=== PATIENT | female | born 1960 | race Caucasian/White ===

== ENCOUNTER → 2019-05-16 | Outpatient (CLI) | payer MEDICARE ==
[~2019-05-16] MED LIST: ALORA1 EAC1 TD; CARAFATE1 GM PO; CELECOXIB200 M1 PO; DHEA25 M3 PO; GOOD SENSE ALLE10 M2 PO; HUMIRA PEN40 MG/0.4 SQ; HYDROCHLOROTH12.5 M2 PO; HYDROCORTISONE10 MG PO; LASIX20 MG PO; LEVAQUIN500 M2 PO; MONTELUKAST SOD10 MG PO; MS CONTIN15 MG PO; NATURE'S BLEND F1 MG PO; OXYBUTYNIN5 MG PO; Ondansetron4 MG PO; PANTOPRAZOLE SO40 MG PO; PERCOCET 10-321 EACH PO; PREDNISONE10 MG PO; VITAMIN D32000 UNI1 PO; Ventolin 02.5 MG/3 M INH; WIXELA 250-501 EACH INH
== END | disposition home or self-care (01) ==
LOC: LAB 08:44
DX: M06.9 Rheumatoid arthritis, unspecified (principal)

== ENCOUNTER → 2019-08-04 | Outpatient (CLI) | payer MEDICARE ==
[2019-08-04 09:15] LABS: ALBUMIN 3.2 gm/dl (3.1-4.5); ALKALINE PHOSPHATASE 58 U/L (45-117); BUN 13 mg/dl (7-24); CHLORIDE 104 mmol/L (98-107); CREATININE 0.87 mg/dL (0.55-1.02); SGOT/AST 25 IU/L (3-35); SGPT/ALT 26 U/L (12-78); SODIUM 139 mmol/L (136-145); TOTAL PROTEIN 6.9 gm/dL (6.4-8.2)
[2019-08-04 09:17] LABS: FREE T4 0.94 ng/dl (0.76-1.46)
[2019-08-05 07:06] LABS: DHEA SULFATE 92.8 ug/dL (29.4-220.5); RHEUMATOID ARTHRITIS FACTOR >650.0 IU/mL (0.0-13.9)
== END | disposition home or self-care (01) ==
LOC: LAB 08:13
PROVIDERS: Nurse Practitioner
DX: E03.9 Hypothyroidism, unspecified (principal); M06.9 Rheumatoid arthritis, unspecified; E27.9 Disorder of adrenal gland, unspecified

== ENCOUNTER 2019-08-14 09:59 | Inpatient (IN) | payer MEDICARE ==
[~2019-08-14] VITALS: Ht 165.1 cm; Wt 126.8 kg
[2019-08-14 10:10] VITALS: BP 130/71
[2019-08-14 10:41] LABS: HEMOGLOBIN 10.8 g/dl (12.0-16.0); MEAN CELL VOLUME 92.5 fl (81.0-99.0); MEAN CORPUSCULAR HGB 27.8 pg (27.0-31.0); MEAN PLATELET VOLUME 11.7 fl (9.6-12.3); PLATELET COUNT AUTOMATED 219 10*3/uL (130-400); RED BLOOD COUNT 3.89 10*6/uL (4.10-5.10); RED CELL DISTRI WIDTH 15.9 % (0-14.5); WHITE BLOOD COUNT 11.3 10*3/uL (4.8-10.8)
[2019-08-14 10:50] LABS: ACT PARTIAL THROMBO TIME 22.3 SECONDS (20.0-32.1); INTERNATIONAL NORM RATIO 0.9 (2.0-3.5)
[2019-08-14 10:58] LABS: ALBUMIN 3.1 gm/dl (3.1-4.5); ALKALINE PHOSPHATASE 53 U/L (45-117); BUN 15 mg/dl (7-24); CHLORIDE 104 mmol/L (98-107); CREATININE 0.95 mg/dL (0.55-1.02); POTASSIUM 3.8 mmol/L (3.5-5.1); SGOT/AST 24 IU/L (3-35); SGPT/ALT 24 U/L (12-78); SODIUM 140 mmol/L (136-145); TOTAL PROTEIN 6.5 gm/dL (6.4-8.2)
[2019-08-14 11:01] LABS: TROPONIN I < 0.015 ng/ml (<0.045)
[2019-08-14 11:02] LABS: TOTAL CELLS COUNTED 100 #CELLS
[2019-08-14 11:04] LABS: PLATELET SUFFICIENCY NORMAL (NORMAL)
--- NOTE | 2019-08-14 11:29 | NUR ---
PT POSITIONED FOR COMFORT WITH FAMILY @ BEDSIDE,CALL LIGHT WITHIN REACH AND SAFETY PRECAUTIONS INTACT.
[2019-08-14 11:30] VITALS: BP 130/76
[2019-08-14 12:13] LABS: BILIRUBIN NEGATIVE (NEGATIVE); BLOOD NEGATIVE (NEGATIVE); CLARITY CLEAR (CLEAR); COLOR YELLOW (YELLOW); GLUCOSE NEGATIVE (NEGATIVE); KETONE NEGATIVE (NEGATIVE); LEUKO ESTERASE NEGATIVE (NEGATIVE); NITRITE NEGATIVE (NEGATIVE); UROBILINOGEN 0.2 E.U./dl (0.2-1.0)
[2019-08-14 12:45] LABS: BACTERIA 1+
[2019-08-14 12:47] VITALS: BP 132/59
--- NOTE | 2019-08-14 13:39 | NUR ---
PT UNABLE TO HAVE CT SCAN D/T NEUROSTIMULATOR AND PT'S DAUGHTER TO BE IN LATER TO "SHUT IT OFF BEFORE I CAN GO TO CT SCAN", PHYSICIANS AWRE.
[2019-08-14 14:27] VITALS: BP 146/81
--- NOTE | 2019-08-14 14:27 | NUR ---
A 59, admitted to , under the services of RONNY Celestin DO with a diagnosis of CHF. Chief complaint is SHORTNESS OF BREATH. Patient arrived via bed from ER. Monitor applied. Initial assessment completed. Vital signs taken and recorded. RONNY CELESTIN DO notified of admission to the unit. Orders received. See assessment for past medical history, medications and allergies. Patient and/or family oriented to unit. [facility] visitation policy reviewed. Clothing/patient valuable form completed. SONIDO TORRES
[2019-08-14] MEDS ORDERED: CELECOXIB200 M1 PO (15:07)
[2019-08-14] MEDS ORDERED: PANTOPRAZOLE SO40 MG PO (15:09)
[2019-08-14] MEDS ORDERED: MONTELUKAST SOD10 MG PO (15:09)
[2019-08-14] MEDS ORDERED: HYDROCHLOROTH12.5 M2 PO (15:11)
[2019-08-14] MEDS ORDERED: DHEA25 M3 PO (15:12)
[2019-08-14] MEDS ORDERED: GOOD SENSE ALLE10 M2 PO (15:13)
[2019-08-14] MEDS ORDERED: VITAMIN D32000 UNI1 PO (15:14)
[2019-08-14] MEDS ORDERED: NATURE'S BLEND F1 MG PO (15:14)
[2019-08-14] MEDS ORDERED: ALORA1 EAC1 TD (15:15)
[2019-08-14] MEDS ORDERED: OXYBUTYNIN5 MG PO (15:15)
[2019-08-14] MEDS ORDERED: Ondansetron4 MG PO (15:16)
[2019-08-14] MEDS ORDERED: PERCOCET 10-321 EACH PO (15:16)
[2019-08-14] MEDS ORDERED: HYDROCORTISONE10 MG PO (15:17)
[2019-08-14] MEDS ORDERED: MS CONTIN15 MG PO (15:18)
[2019-08-14] MEDS ORDERED: WIXELA 250-501 EACH INH (15:18)
[2019-08-14] MEDS ORDERED: Ventolin 02.5 MG/3 M INH (15:18)
[2019-08-14] MEDS ORDERED: HUMIRA PEN40 MG/0.4 SQ (15:19)
[2019-08-14 16:00] VITALS: BP 149/64
--- NOTE | 2019-08-14 16:00 | NUR ---
DR RABAGO NOTIFIED THAT PT MED REC IS UPDATED PER PAPERWORK PROVIDED BY PATIENT. WHEN QUESTIONED IF PT IS TO BE ON CAN PILER, PHYSICIAN STATES THAT WE WILL WAIT ON THE RESULTS OF THE CTA. FOR NOW, KEEP PT MED SURG AND KEEP PT OFF OF HEART MONITOR.
[2019-08-14 20:00] VITALS: BP 148/62
--- NOTE | 2019-08-15 00:29 | NUR ---
Patient resting quietly with no c/o discomfort. Respirations easy and regular. Vital signs stable. No overt distress. LISA BABIN
[2019-08-15 06:11] LABS: HEMATOCRIT 39.9 % (37.0-47.0); HEMOGLOBIN 11.8 g/dl (12.0-16.0); MEAN CELL VOLUME 90.1 fl (81.0-99.0); MEAN CORPUSCULAR HGB 26.6 pg (27.0-31.0); MEAN CORPUSCULAR HGB CONC 29.6 g/dl (33.0-37.0); MEAN PLATELET VOLUME 12.3 fl (9.6-12.3); PLATELET COUNT AUTOMATED 273 10*3/uL (130-400); RED BLOOD COUNT 4.43 10*6/uL (4.10-5.10); RED CELL DISTRI WIDTH 15.7 % (0-14.5); WHITE BLOOD COUNT 7.4 10*3/uL (4.8-10.8)
[2019-08-15 06:39] LABS: PLATELET SUFFICIENCY NORMAL (NORMAL); TOTAL CELLS COUNTED 100 #CELLS
[2019-08-15 06:41] LABS: BUN 13 mg/dl (7-24); CHLORIDE 101 mmol/L (98-107); CHOLESTEROL 208 mg/dL (<200); CREATININE 1.03 mg/dL (0.55-1.02); SODIUM 137 mmol/L (136-145)
[2019-08-15 06:52] LABS: HDL CHOLESTEROL 67 mg/dl (40-60); LDL CHOLESTEROL 128 mg/dL (9-159); PHOSPHOROUS 3.4 mg/dL (2.5-4.9); THYROID STIM HORMONE (HS) 0.664 uIU/ml (0.358-4.75); TRIGLYCERIDES 64 mg/dl (<150); VLDL CHOLESTEROL 13 mg/dL (6-40)
[2019-08-15 08:00] VITALS: BP 142/70
--- NOTE | 2019-08-15 11:35 | NUR ---
Occupational Therapy evaluation offered this date on 5. Patient reports that she does not need any OT. She is independent in all ADLs,has shaft tender, sock aid,long sponge, shower set, rollator walker as needed at home. She has been ambulating to and from bathroom at independent level and has taken her own shower today. Patient reports she understands to rest before too tired and used oxygen at home. Discharge OT referral d/t patient's independence. Thank you for this referral. Anna Casillas OTR/l
[2019-08-15 11:52] VITALS: BP 149/75
--- NOTE | 2019-08-15 13:06 | NUR ---
Live Ammunition Inspector in to talk to patient. Patient states lives at HOME with ALONE. There are NO steps in the home. Physician: DR BEGUM Pharmacy: [facility] Home health services: NONE Patient's level of ADLs: INDEPENDENT Patient has working utilities: YES DME: [facility], HAS A WALKER AND WHEELCHAIR IF NEEDED Follow-up physician's appointment after d/c: WILL BE MADE BY HOSPITALIST NURSE DIRECTOR ON DISCHARGE Does patient want to access PORTAL?: NO Discharge plan PT LIVES AT HOME ALONE AND IS INDEPENDENT IN HER CARE. DENIES SHE WILL HAVE ANY NEW NEEDS ON DISCAHRGE. WILL RETURN HOME WHEN MEDICALLY STABLE. WILL CONTINUE TO FOLLOW. PT STATES SHE WILL HAVE A RIDE HOME.. MERRILL AARON
--- NOTE | 2019-08-15 15:50 | NUR ---
PT evaluation attempted on 5th floor. Pt declined the need for physical therapy d/t being able to get up on her own, walking to/from bathroom, washed and dressed herself today. Pt states she is set with home equipment including 4 wheeled walker, shower chair, entertainment & media correspondent, long handled sponge. Pt is polite. No PT needs at this time. DC PT referral d/t pt being independent. Pt is wearing oxgyen and in no distress upon my depature. Thank you for this referral, Mildred Ball, PT.
[2019-08-15 15:57] VITALS: BP 127/84
[2019-08-15 20:00] VITALS: BP 151/70
[2019-08-16] VITALS: BP 156/86
--- NOTE | 2019-08-16 02:37 | NUR ---
Patient resting quietly with no c/o discomfort. Respirations easy and regular. Vital signs stable. No overt distress. LISA BABIN
[2019-08-16 08:00] VITALS: BP 160/70
[2019-08-16 08:33] LABS: HEMATOCRIT 39.1 % (37.0-47.0); HEMOGLOBIN 11.5 g/dl (12.0-16.0); MEAN CELL VOLUME 91.8 fl (81.0-99.0); MEAN CORPUSCULAR HGB CONC 29.4 g/dl (33.0-37.0); MEAN PLATELET VOLUME 12.3 fl (9.6-12.3); PLATELET COUNT AUTOMATED 271 10*3/uL (130-400); RED BLOOD COUNT 4.26 10*6/uL (4.10-5.10); RED CELL DISTRI WIDTH 16.1 % (0-14.5); WHITE BLOOD COUNT 13.9 10*3/uL (4.8-10.8)
[2019-08-16 08:45] LABS: BUN 19 mg/dl (7-24); CHLORIDE 102 mmol/L (98-107); CREATININE 0.99 mg/dL (0.55-1.02); POTASSIUM 4.4 mmol/L (3.5-5.1); SODIUM 139 mmol/L (136-145)
--- NOTE | 2019-08-16 08:45 | NUR ---
HOME O2 ASSESSMENT ROOM AT REST SPO2 86% HR 92 RR 24 BP 160/80 2L AT REST SPO2 93% HR 94 RR 20 2L WITH AMBULATION SPO2 91-95% HR 106-110 RR 24 2L RESTING (RECOVERY AFTER AMBULATION) SPO2 93% HR 94 RR 20 BP 161/79 PT. REQUIRES 2L SUPPLEMENTAL OXYGEN AT REST AND WITH EXERTION TO KEEP SPO2 >= TO 88%. PT. ALREADY HAS HOME OXYGEN WITH [facility]. RN NOTIFIED WITH RESULTS.
[2019-08-16 09:48] LABS: TOTAL CELLS COUNTED 100 #CELLS
[2019-08-16 09:49] LABS: PLATELET SUFFICIENCY NORMAL (NORMAL)
[2019-08-16] MEDS ORDERED: PREDNISONE10 MG PO (11:45)
[2019-08-16] MEDS ORDERED: LEVAQUIN500 M2 PO (11:45)
[2019-08-16] MEDS ORDERED: CARAFATE1 GM PO (11:45)
[2019-08-16] MEDS ORDERED: LASIX20 MG PO (11:46)
[2019-08-16 12:00] VITALS: BP 129/78
--- NOTE | 2019-08-16 14:02 | NUR ---
Discharge instructions reviewed with patient/family. Patient receptive and verbalizes understanding. Follow-up care arranged. Written instructions given to patient/family. SAGAR BRAVO
== END 2019-08-16 14:02 | disposition home or self-care (01) | DRG 291 ==
LOC: ED 09:59 → 5E 12:28 → EDHOLD 12:28 → 5E 13:32
PROVIDERS: Emergency Medicine; Family Medicine; ADMIT Internal Medicine
DX: I50.31 Acute diastolic (congestive) heart failure (principal); J18.9 Pneumonia, unspecified organism; J44.1 Chronic obstructive pulmonary disease with (acute) exacerbation; J44.0 Chronic obstructive pulmonary disease with (acute) lower respiratory infection; Z68.42 Body mass index [BMI] 45.0-49.9, adult; E66.01 Morbid (severe) obesity due to excess calories; D72.821 Monocytosis (symptomatic); D64.9 Anemia, unspecified; K21.9 Gastro-esophageal reflux disease without esophagitis; R79.89 Other specified abnormal findings of blood chemistry; M19.90 Unspecified osteoarthritis, unspecified site; Z96.653 Presence of artificial knee joint, bilateral; E78.5 Hyperlipidemia, unspecified; Z77.22 Contact with and (suspected) exposure to environmental tobacco smoke (acute) (chronic); M05.79 Rheumatoid arthritis with rheumatoid factor of multiple sites without organ or systems involvement; Z91.09 Other allergy status, other than to drugs and biological substances; Z99.81 Dependence on supplemental oxygen; Z79.52 Long term (current) use of systemic steroids; Z90.49 Acquired absence of other specified parts of digestive tract; Z98.51 Tubal ligation status; Z81.8 Family history of other mental and behavioral disorders; Z82.49 Family history of ischemic heart disease and other diseases of the circulatory system; Z82.0 Family history of epilepsy and other diseases of the nervous system; Z84.1 Family history of disorders of kidney and ureter; Z79.899 Other long term (current) drug therapy

== ENCOUNTER → 2019-10-01 | Outpatient (CLI) | payer MEDICARE | END | disposition home or self-care (01) | LOC: RAD 07:31 | DX: J98.6 Disorders of diaphragm (principal); J44.9 Chronic obstructive pulmonary disease, unspecified; R06.00 Dyspnea, unspecified ==

== ENCOUNTER → 2020-02-14 | Outpatient (CLI) | payer MEDICARE, MEDICAID ==
[2020-02-14 11:29] LABS: ALBUMIN 3.2 gm/dl (3.1-4.5); ALKALINE PHOSPHATASE 63 U/L (45-117); BUN 16 mg/dl (7-24); CHLORIDE 108 mmol/L (98-107); CREATININE 0.96 mg/dL (0.55-1.02); FREE T4 1.08 ng/dl (0.76-1.46); POTASSIUM 3.8 mmol/L (3.5-5.1); SGOT/AST 13 IU/L (3-35); SGPT/ALT 23 U/L (12-78); SODIUM 139 mmol/L (136-145)
[2020-02-16 04:02] LABS: PROGESTERONE 0.8 ng/mL (.)
[2020-02-16 06:06] LABS: RHEUMATOID ARTHRITIS FACTOR 414.8 IU/mL (0.0-13.9)
== END | disposition home or self-care (01) ==
LOC: CT 02-06 10:00 → LAB 09:53 → CT 10:00
PROVIDERS: Nurse Practitioner
DX: K44.9 Diaphragmatic hernia without obstruction or gangrene (principal); R91.1 Solitary pulmonary nodule; J84.113 Idiopathic non-specific interstitial pneumonitis; E03.9 Hypothyroidism, unspecified; E27.9 Disorder of adrenal gland, unspecified; M06.9 Rheumatoid arthritis, unspecified; R73.01 Impaired fasting glucose; E53.9 Vitamin B deficiency, unspecified

== ENCOUNTER → 2020-06-30 | Outpatient (CLI) | payer MEDICARE, OTHER ==
[2020-06-30 11:59] LABS: ALBUMIN 3.3 gm/dl (3.1-4.5); BUN 12 mg/dl (7-24); CHLORIDE 107 mmol/L (98-107); CHOLESTEROL 153 mg/dL (<200); CREATININE 0.93 mg/dL (0.55-1.02); POTASSIUM 4.3 mmol/L (3.5-5.1); SGOT/AST 20 IU/L (3-35); SGPT/ALT 27 U/L (12-78); SODIUM 142 mmol/L (136-145); TOTAL PROTEIN 7.3 gm/dL (6.4-8.2); TRIGLYCERIDES 217 mg/dl (<150); VLDL CHOLESTEROL 43 mg/dL (6-40)
[2020-06-30 12:05] LABS: ALKALINE PHOSPHATASE 85 U/L (45-117); FREE T4 1.01 ng/dl (0.76-1.46); HDL CHOLESTEROL 53 mg/dl (40-60); LDL CHOLESTEROL 57 mg/dL (9-159)
[2020-07-01 05:06] LABS: DHEA SULFATE 66.5 ug/dL (29.4-220.5); THYROID PEROXIDASE (TPO) AB <9 IU/mL (0-34)
[2020-07-01 08:11] LABS: RHEUMATOID ARTHRITIS FACTOR 348.5 IU/mL (0.0-13.9)
[2020-07-06 18:06] LABS: T3 REVERSE 13.2 ng/dL (9.2-24.1)
== END | disposition home or self-care (01) ==
LOC: LAB 10:46
PROVIDERS: ATTEND Nurse Practitioner
DX: E03.9 Hypothyroidism, unspecified (principal); M06.9 Rheumatoid arthritis, unspecified; E27.9 Disorder of adrenal gland, unspecified; R73.01 Impaired fasting glucose; E78.5 Hyperlipidemia, unspecified

== ENCOUNTER → 2020-10-27 | Outpatient (CLI) | payer MEDICARE, OTHER ==
[~2020-10-27] MED LIST changes: +ACID REDUCER10 MG PO; +ADV 500/50 INH; +B COMPLEX1 EACH PO; +HYDROCORTISONE20 M2 PO; +HYDROXYCHLOROQ200 M1 PO; +Ipratropium Brom3 ML INH; +LEVOTHYROXINE50 MCG PO; +MS CONTIN30 MG PO; +OMEPRAZOLE40 MG PO
[2020-10-27 12:49] LABS: ALBUMIN 3.4 gm/dl (3.1-4.5); ALKALINE PHOSPHATASE 82 U/L (45-117); BUN 16 mg/dl (7-24); CHLORIDE 108 mmol/L (98-107); CHOLESTEROL 157 mg/dL (<200); CREATININE 0.84 mg/dL (0.55-1.02); HDL CHOLESTEROL 55 mg/dl (40-60); LDL CHOLESTEROL 75 mg/dL (9-159); POTASSIUM 3.9 mmol/L (3.5-5.1); SGOT/AST 23 IU/L (3-35); SGPT/ALT 27 U/L (12-78); SODIUM 142 mmol/L (136-145); THYROXINE (T4) TOTAL 8.3 ug/dl (4.8-13.9); TRIGLYCERIDES 137 mg/dl (<150); VLDL CHOLESTEROL 27 mg/dL (6-40)
[2020-10-28 06:07] LABS: RBC, FOLATE HEMATOCRIT 37.5 % (34.0-46.6)
[2020-10-28 08:08] LABS: RHEUMATOID ARTHRITIS FACTOR 370.7 IU/mL (0.0-13.9)
[2020-10-28 10:07] LABS: DHEA SULFATE 73.3 ug/dL (29.4-220.5); TOTAL T3 (TT3) 92 ng/dL (71-180)
[2020-10-28 20:07] LABS: TESTOSTERONE FREE, (DIRECT) 1.1 pg/mL (0.0-4.2)
== END | disposition home or self-care (01) ==
LOC: LAB 11:55
PROVIDERS: ATTEND Nurse Practitioner
DX: E03.9 Hypothyroidism, unspecified (principal); E55.9 Vitamin D deficiency, unspecified; M06.9 Rheumatoid arthritis, unspecified; R07.89 Other chest pain; E27.9 Disorder of adrenal gland, unspecified

== ENCOUNTER → 2020-11-18 | Outpatient (CLI) | payer MEDICARE, OTHER ==
[2020-11-18 10:37] LABS: BASO # 0.1 10*3/uL (0.0-0.1); BASO % 0.8 % (0.0-1.0); EOS # 0.4 10*3/uL (0.0-0.4); EOS % 5.4 % (1.0-4.0); HEMATOCRIT 39.8 % (37.0-47.0); LYMPH # 3.1 10*3/uL (1.3-4.4); LYMPH % 39.9 % (27.0-41.0); MEAN CELL VOLUME 93.6 fl (81.0-99.0); MEAN CORPUSCULAR HGB 28.5 pg (27.0-31.0); MEAN CORPUSCULAR HGB CONC 30.4 g/dl (33.0-37.0); MEAN PLATELET VOLUME 12.6 fl (9.6-12.3); MONO # 1.3 10*3/uL (0.1-1.0); MONO % 16.2 % (3.0-9.0); NEUT # 2.9 10*3/uL (2.3-7.9); NEUT % 37.6 % (47.0-73.0); PLATELET COUNT AUTOMATED 199 10*3/uL (130-400); RED BLOOD COUNT 4.25 10*6/uL (4.10-5.10); RED CELL DISTRI WIDTH 14.6 % (0-14.5); WHITE BLOOD COUNT 7.8 10*3/uL (4.8-10.8)
== END | disposition home or self-care (01) ==
LOC: LAB 10:09
PROVIDERS: ATTEND Internal Medicine Critical Care Medicine
DX: K21.9 Gastro-esophageal reflux disease without esophagitis (principal); J45.30 Mild persistent asthma, uncomplicated; J98.6 Disorders of diaphragm; J96.11 Chronic respiratory failure with hypoxia; G47.33 Obstructive sleep apnea (adult) (pediatric); Z68.42 Body mass index [BMI] 45.0-49.9, adult; Z99.81 Dependence on supplemental oxygen

== ENCOUNTER 2020-12-10 09:40 | Observation (INO) | payer MEDICARE, OTHER ==
[2020-12-10] VITALS (7 sets, daily range): BP systolic 122–155; BP diastolic 53–82
[~2020-12-10] VITALS: Ht 160 cm; Wt 131.6 kg
[~2020-12-10 09:40] MED LIST changes: -ACID REDUCER10 MG PO; -ADV 500/50 INH; -B COMPLEX1 EACH PO; -HYDROCORTISONE20 M2 PO; -HYDROXYCHLOROQ200 M1 PO; -Ipratropium Brom3 ML INH; -LEVOTHYROXINE50 MCG PO; -MS CONTIN30 MG PO; -OMEPRAZOLE40 MG PO
[2020-12-10 09:54] LABS: BASO # 0.1 10*3/uL (0.0-0.1); EOS # 0.3 10*3/uL (0.0-0.4); EOS % 4.6 % (1.0-4.0); HEMATOCRIT 38.9 % (37.0-47.0); LYMPH # 2.7 10*3/uL (1.3-4.4); LYMPH % 37.3 % (27.0-41.0); MEAN CORPUSCULAR HGB 28.8 pg (27.0-31.0); MEAN CORPUSCULAR HGB CONC 31.4 g/dl (33.0-37.0); MEAN PLATELET VOLUME 11.9 fl (9.6-12.3); MONO # 1.1 10*3/uL (0.1-1.0); MONO % 15.9 % (3.0-9.0); NEUT # 2.9 10*3/uL (2.3-7.9); NEUT % 40.9 % (47.0-73.0); PLATELET COUNT AUTOMATED 193 10*3/uL (130-400); RED BLOOD COUNT 4.23 10*6/uL (4.10-5.10); RED CELL DISTRI WIDTH 14.3 % (0-14.5); WHITE BLOOD COUNT 7.1 10*3/uL (4.8-10.8)
[2020-12-10 10:05] LABS: ACT PARTIAL THROMBO TIME 22.2 SECONDS (20.0-32.1); INTERNATIONAL NORM RATIO 0.9 (2.0-3.5)
[2020-12-10 10:12] LABS: ALBUMIN 3.3 gm/dl (3.1-4.5); ALKALINE PHOSPHATASE 72 U/L (45-117); BUN 11 mg/dl (7-24); CHLORIDE 109 mmol/L (98-107); CREATININE 0.86 mg/dL (0.55-1.02); POTASSIUM 3.7 mmol/L (3.5-5.1); SGOT/AST 23 IU/L (3-35); SGPT/ALT 31 U/L (12-78); SODIUM 141 mmol/L (136-145)
[2020-12-10 10:13] LABS: TROPONIN I < 0.015 ng/ml (<0.045)
[2020-12-10] MEDS ORDERED: MS CONTIN30 MG PO (13:44)
[2020-12-10] MEDS ORDERED: HYDROXYCHLOROQ200 M1 PO (13:50)
[2020-12-10] MEDS ORDERED: HYDROCORTISONE20 M2 PO (13:54)
[2020-12-10] MEDS ORDERED: Ipratropium Brom3 ML INH (13:56)
[2020-12-10] MEDS ORDERED: OMEPRAZOLE40 MG PO (13:56)
[2020-12-10] MEDS ORDERED: LEVOTHYROXINE50 MCG PO (13:57)
[2020-12-10] MEDS ORDERED: ACID REDUCER10 MG PO (13:58)
[2020-12-10] MEDS ORDERED: ADV 500/50 INH (14:02)
[2020-12-10] MEDS ORDERED: B COMPLEX1 EACH PO (14:03)
[2020-12-11] VITALS: BP 147/66
[2020-12-11 06:16] LABS: BASO # 0.1 10*3/uL (0.0-0.1); BASO % 0.9 % (0.0-1.0); EOS # 0.2 10*3/uL (0.0-0.4); EOS % 3.3 % (1.0-4.0); HEMATOCRIT 39.1 % (37.0-47.0); LYMPH # 1.8 10*3/uL (1.3-4.4); LYMPH % 25.2 % (27.0-41.0); MEAN CORPUSCULAR HGB 28.8 pg (27.0-31.0); MEAN CORPUSCULAR HGB CONC 30.7 g/dl (33.0-37.0); MEAN PLATELET VOLUME 12.2 fl (9.6-12.3); MONO # 0.8 10*3/uL (0.1-1.0); NEUT # 4.1 10*3/uL (2.3-7.9); NEUT % 58.3 % (47.0-73.0); PLATELET COUNT AUTOMATED 197 10*3/uL (130-400); RED BLOOD COUNT 4.16 10*6/uL (4.10-5.10); RED CELL DISTRI WIDTH 14.4 % (0-14.5)
[2020-12-11 06:31] LABS: ALBUMIN 3.2 gm/dl (3.1-4.5); ALKALINE PHOSPHATASE 68 U/L (45-117); BUN 12 mg/dl (7-24); CHLORIDE 109 mmol/L (98-107); CREATININE 0.73 mg/dL (0.55-1.02); POTASSIUM 4.3 mmol/L (3.5-5.1); SGOT/AST 22 IU/L (3-35); SGPT/ALT 29 U/L (12-78); SODIUM 140 mmol/L (136-145); TOTAL PROTEIN 6.9 gm/dL (6.4-8.2)
[2020-12-11 08:00] VITALS: BP 120/50
[2020-12-11 12:00] VITALS: BP 150/64
[2020-12-11 16:00] VITALS: BP 154/67
== END 2020-12-11 18:47 | disposition home or self-care (01) ==
LOC: ED 09:40 → EDHOLD 11:36 → 5E 16:19
PROVIDERS: Family Medicine; Registered Nurse; ADMIT Internal Medicine; ATTEND Internal Medicine
DX: R07.89 Other chest pain (principal); J44.1 Chronic obstructive pulmonary disease with (acute) exacerbation; E78.5 Hyperlipidemia, unspecified; K21.9 Gastro-esophageal reflux disease without esophagitis; D72.829 Elevated white blood cell count, unspecified; M06.9 Rheumatoid arthritis, unspecified; J96.11 Chronic respiratory failure with hypoxia; E44.0 Moderate protein-calorie malnutrition; G47.33 Obstructive sleep apnea (adult) (pediatric); E66.01 Morbid (severe) obesity due to excess calories; Z90.49 Acquired absence of other specified parts of digestive tract; Z90.89 Acquired absence of other organs; Z98.890 Other specified postprocedural states

== ENCOUNTER → 2021-01-20 | Outpatient (CLI) | payer MEDICARE, OTHER ==
[~2021-01-20] MED LIST changes: +ACID REDUCER10 MG PO; +ADV 500/50 INH; +B COMPLEX1 EACH PO; +HYDROCORTISONE20 M2 PO; +HYDROXYCHLOROQ200 M1 PO; +Ipratropium Brom3 ML INH; +LEVOTHYROXINE50 MCG PO; +MS CONTIN30 MG PO; +OMEPRAZOLE40 MG PO
[2021-01-20 09:30] LABS: ALBUMIN 3.2 gm/dl (3.1-4.5); BUN 15 mg/dl (7-24); CHLORIDE 110 mmol/L (98-107); CREATININE 0.84 mg/dL (0.55-1.02); POTASSIUM 3.8 mmol/L (3.5-5.1); SGOT/AST 17 IU/L (3-35); SGPT/ALT 25 U/L (12-78); SODIUM 143 mmol/L (136-145)
[2021-01-20 09:39] LABS: ALKALINE PHOSPHATASE 73 U/L (45-117); FREE T4 0.93 ng/dl (0.76-1.46)
[2021-01-21 04:06] LABS: DHEA SULFATE 72.4 ug/dL (29.4-220.5)
[2021-01-21 05:06] LABS: RHEUMATOID ARTHRITIS FACTOR 275.7 IU/mL (0.0-13.9)
[2021-01-24 12:07] LABS: T3 REVERSE 17.2 ng/dL (9.2-24.1)
[2021-01-30 08:02] LABS: TESTOSTERONE FREE, (DIRECT) 1.1
== END | disposition home or self-care (01) ==
LOC: LAB 08:46
PROVIDERS: ATTEND Nurse Practitioner
DX: E03.9 Hypothyroidism, unspecified (principal); M06.9 Rheumatoid arthritis, unspecified; E27.9 Disorder of adrenal gland, unspecified

== ENCOUNTER → 2021-05-14 | Outpatient (CLI) | payer MEDICARE, OTHER ==
[2021-05-14 10:03] LABS: ALBUMIN 3.1 gm/dl (3.1-4.5); ALKALINE PHOSPHATASE 69 U/L (45-117); BUN 14 mg/dl (7-24); CHLORIDE 109 mmol/L (98-107); CHOLESTEROL 174 mg/dL (<200); CREATININE 0.76 mg/dL (0.55-1.02); FREE T4 0.92 ng/dl (0.76-1.46); LDL CHOLESTEROL 94 mg/dL (9-159); POTASSIUM 3.8 mmol/L (3.5-5.1); SGOT/AST 20 IU/L (3-35); SGPT/ALT 32 U/L (12-78); SODIUM 140 mmol/L (136-145); TRIGLYCERIDES 125 mg/dl (<150)
[2021-05-15 04:06] LABS: DHEA SULFATE 57.1 ug/dL (29.4-220.5); PROGESTERONE 0.1 ng/mL (.)
[2021-05-15 05:06] LABS: RHEUMATOID ARTHRITIS FACTOR 327.9 IU/mL (0.0-13.9)
[2021-05-18 18:06] LABS: T3 REVERSE 13.3 ng/dL (9.2-24.1)
== END | disposition home or self-care (01) ==
LOC: LAB 09:08
PROVIDERS: ATTEND Nurse Practitioner
DX: E03.9 Hypothyroidism, unspecified (principal); E27.9 Disorder of adrenal gland, unspecified; M06.9 Rheumatoid arthritis, unspecified; I10 Essential (primary) hypertension

== ENCOUNTER → 2021-11-17 | Outpatient (CLI) | payer MEDICARE, OTHER ==
[2021-11-17 09:36] LABS: BASO % 0.1 % (0.0-1.0); HEMATOCRIT 39.1 % (37.0-47.0); LYMPH # 1.8 10*3/uL (1.3-4.4); LYMPH % 23.2 % (27.0-41.0); MEAN CELL VOLUME 93.1 fl (81.0-99.0); MEAN CORPUSCULAR HGB 28.8 pg (27.0-31.0); MEAN CORPUSCULAR HGB CONC 30.9 g/dl (33.0-37.0); MEAN PLATELET VOLUME 12.9 fl (9.6-12.3); MONO # 1.1 10*3/uL (0.1-1.0); MONO % 13.9 % (3.0-9.0); NEUT # 4.7 10*3/uL (2.3-7.9); NEUT % 62.4 % (47.0-73.0); PLATELET COUNT AUTOMATED 177 10*3/uL (130-400); RED CELL DISTRI WIDTH 15.6 % (0-14.5); WHITE BLOOD COUNT 7.6 10*3/uL (4.8-10.8)
[2021-11-17 09:55] LABS: ALKALINE PHOSPHATASE 63 U/L (45-117); BUN 15 mg/dl (7-24); CHLORIDE 105 mmol/L (98-107); CREATININE 0.75 mg/dL (0.55-1.02); FREE T4 1.06 ng/dl (0.76-1.46); POTASSIUM 3.9 mmol/L (3.5-5.1); SGOT/AST 15 IU/L (3-35); SGPT/ALT 25 U/L (12-78); SODIUM 140 mmol/L (136-145); TOTAL PROTEIN 7.2 gm/dL (6.4-8.2)
[2021-11-18 05:06] LABS: DHEA SULFATE 79.5 ug/dL (29.4-220.5); PROGESTERONE 0.5 ng/mL (.)
[2021-11-18 07:05] LABS: RHEUMATOID ARTHRITIS FACTOR >650.0 IU/mL (<14.0)
[2021-11-19 11:07] LABS: TESTOSTERONE FREE, (DIRECT) 0.9 pg/mL (0.0-4.2)
[2021-11-20 13:06] LABS: T3 REVERSE 14.6 ng/dL (9.2-24.1)
== END | disposition home or self-care (01) ==
LOC: LAB 08:48
PROVIDERS: ATTEND Nurse Practitioner
DX: E27.9 Disorder of adrenal gland, unspecified (principal); M06.9 Rheumatoid arthritis, unspecified; E03.9 Hypothyroidism, unspecified

== ENCOUNTER → 2022-03-22 | Outpatient (CLI) | payer MEDICARE, OTHER ==
[2022-03-22 09:00] LABS: HEMATOCRIT 40.8 % (37.0-47.0); LYMPH # 2.1 10*3/uL (1.3-4.4); LYMPH % 27.6 % (27.0-41.0); MEAN CELL VOLUME 91.1 fl (81.0-99.0); MEAN CORPUSCULAR HGB 28.3 pg (27.0-31.0); MEAN CORPUSCULAR HGB CONC 31.1 g/dl (33.0-37.0); MEAN PLATELET VOLUME 12.4 fl (9.6-12.3); MONO # 1.2 10*3/uL (0.1-1.0); MONO % 15.3 % (3.0-9.0); NEUT # 4.3 10*3/uL (2.3-7.9); PLATELET COUNT AUTOMATED 176 10*3/uL (130-400); RED BLOOD COUNT 4.48 10*6/uL (4.10-5.10); RED CELL DISTRI WIDTH 15.5 % (0-14.5); WHITE BLOOD COUNT 7.6 10*3/uL (4.8-10.8)
[2022-03-22 09:28] LABS: ALKALINE PHOSPHATASE 58 U/L (45-117); BUN 16 mg/dl (7-24); CHLORIDE 107 mmol/L (98-107); CREATININE 0.85 mg/dL (0.55-1.02); FREE T4 1.04 ng/dl (0.76-1.46); POTASSIUM 3.7 mmol/L (3.5-5.1); SGOT/AST 18 IU/L (3-35); SGPT/ALT 25 U/L (12-78); SODIUM 140 mmol/L (136-145); TOTAL PROTEIN 6.8 gm/dL (6.4-8.2)
[2022-03-23 04:06] LABS: DHEA SULFATE 81.8 ug/dL (29.4-220.5)
[2022-03-23 08:08] LABS: RHEUMATOID FACTOR 374.6 IU/mL (<14.0)
[2022-03-25 05:06] LABS: TESTOSTERONE FREE, (DIRECT) <0.2 pg/mL (0.0-4.2)
[2022-03-26 18:06] LABS: T3 REVERSE 15.2 ng/dL (9.2-24.1)
== END | disposition home or self-care (01) ==
LOC: LAB 08:27
PROVIDERS: ATTEND Nurse Practitioner
DX: E27.9 Disorder of adrenal gland, unspecified (principal); E55.9 Vitamin D deficiency, unspecified; E03.9 Hypothyroidism, unspecified; M06.9 Rheumatoid arthritis, unspecified

== ENCOUNTER → 2022-07-28 | Outpatient (CLI) | payer MEDICARE, OTHER ==
[2022-07-28 10:01] LABS: BASO % 0.2 % (0.0-1.0); HEMATOCRIT 41.2 % (37.0-47.0); LYMPH # 2.6 10*3/uL (1.3-4.4); LYMPH % 23.4 % (27.0-41.0); MEAN CELL VOLUME 94.3 fl (81.0-99.0); MEAN CORPUSCULAR HGB 30.2 pg (27.0-31.0); MEAN PLATELET VOLUME 12.3 fl (9.6-12.3); MONO # 1.5 10*3/uL (0.1-1.0); MONO % 13.2 % (3.0-9.0); NEUT % 62.9 % (47.0-73.0); PLATELET COUNT AUTOMATED 191 10*3/uL (130-400); RED BLOOD COUNT 4.37 10*6/uL (4.10-5.10); RED CELL DISTRI WIDTH 13.9 % (0-14.5); WHITE BLOOD COUNT 11.1 10*3/uL (4.8-10.8)
[2022-07-28 10:17] LABS: ALKALINE PHOSPHATASE 61 U/L (45-117); BUN 21 mg/dl (7-24); CHLORIDE 106 mmol/L (98-107); CREATININE 0.84 mg/dL (0.55-1.02); POTASSIUM 3.5 mmol/L (3.5-5.1); SGPT/ALT 28 U/L (12-78); SODIUM 140 mmol/L (136-145); TOTAL PROTEIN 7.3 gm/dL (6.4-8.2)
[2022-07-29 04:05] LABS: DHEA SULFATE 20.9 ug/dL (29.4-220.5)
[2022-08-02 13:04] LABS: T3 REVERSE 13.7 ng/dL (9.2-24.1)
[2022-08-03 00:03] LABS: TESTOSTERONE FREE, (DIRECT) <0.2 pg/mL (0.0-4.2)
[2022-08-03 14:05] LABS: ALANINE 182.6 (77.9-1337.0); ALPHA-AMINOADIPATE 16.3 (0.5-146.7); ALPHA-AMINOBUTYRATE 8.4 (1.0-34.6); ASPARAGINE 41.4 (25.4-454.2); CITRULLINE 2.2 (1.0-27.4); GLUTAMATE 12.8 (5.0-92.4); GLUTAMINE 315.2 (5.0-1756.2); GLYCINE 375.7 (277.3-7996.9); HYDROXYPROLINE 2.2 (0.5-87.9); PROLINE 6.8 (5.0-168.6); SERINE 127.3 (98.4-1052.8); TAURINE 82.3 (24.2-5335.7); THREONINE 59.2 (5.0-714.9); VALINE 16.4 (5.0-147.4)
[2022-08-03 16:05] LABS: NICOTINAMIDE 7.5 ng/mL (5.2-72.1)
[2022-08-04 04:04] LABS: NICOTINIC ACID <5.0 ng/mL (0.0-5.0)
[2022-08-04 11:38] LABS: ALLOISOLEUCINE 0.8 (0.1-13.5); BETA-ALANINE 1.1 (1.0-869.8); CYSTATHIONINE 3.2 (0.5-80.8); GAMMA-AMINOBUTYRATE <.5 (0.5-13.1); HOMOCITRULLINE 3.4 (0.5-80.0); HOMOCYSTINE <0.3 (0.3-1.4); ISOLEUCINE 6.9 (5.0-48.1); LEUCINE 14.8 (5.0-129.1); PHENYLALANINE 22.3 (5.0-239.0); TYROSINE 66.1 (5.0-388.9)
[2022-08-04 11:39] LABS: ARGININE 11.9 (5.0-69.6); HYDROXYLYSINE 1.2 (0.1-37.3); LYSINE 36.4 (15.3-1020.6); ORNITHINE 10.3 (5.0-76.3); TRYPTOPHAN 31.3 (1.0-207.5)
== END | disposition home or self-care (01) ==
LOC: LAB 09:07
PROVIDERS: ATTEND Nurse Practitioner
DX: E27.9 Disorder of adrenal gland, unspecified (principal); M06.9 Rheumatoid arthritis, unspecified; E03.9 Hypothyroidism, unspecified; E55.9 Vitamin D deficiency, unspecified; R07.89 Other chest pain

== ENCOUNTER → 2022-09-27 | Outpatient (CLI) | payer MEDICARE, OTHER | END | disposition home or self-care (01) | LOC: ORTHO 01:00 | PROVIDERS: ATTEND Orthopaedic Surgery | DX: M79.641 Pain in right hand (principal) ==

== ENCOUNTER → 2022-09-28 | Outpatient (CLI) | payer MEDICARE, OTHER | END | disposition home or self-care (01) | LOC: ORTHO 00:51 | PROVIDERS: ATTEND Orthopaedic Surgery | DX: M19.022 Primary osteoarthritis, left elbow (principal) ==

== ENCOUNTER → 2022-10-25 | Outpatient (CLI) | payer MEDICARE, OTHER | END | disposition home or self-care (01) | LOC: ORTHO 00:59 | PROVIDERS: ATTEND Orthopaedic Surgery | DX: M19.012 Primary osteoarthritis, left shoulder (principal); M25.812 Other specified joint disorders, left shoulder ==

== ENCOUNTER → 2022-11-15 | Outpatient (CLI) | payer MEDICARE, OTHER | END | disposition home or self-care (01) | LOC: RAD 10-08 10:00 | PROVIDERS: ATTEND Orthopaedic Surgery | DX: M81.0 Age-related osteoporosis without current pathological fracture (principal) ==

== ENCOUNTER → 2022-12-10 | Outpatient (CLI) | payer MEDICARE ==
[2022-12-10 09:23] LABS: BASO % 0.1 % (0.0-1.0); HEMATOCRIT 45.5 % (37.0-47.0); LYMPH % 25.5 % (27.0-41.0); MEAN CELL VOLUME 95.2 fl (81.0-99.0); MEAN CORPUSCULAR HGB 30.3 pg (27.0-31.0); MEAN CORPUSCULAR HGB CONC 31.9 g/dl (33.0-37.0); MEAN PLATELET VOLUME 13.4 fl (9.6-12.3); MONO # 1.2 10*3/uL (0.1-1.0); NEUT # 4.7 10*3/uL (2.3-7.9); NEUT % 59.3 % (47.0-73.0); PLATELET COUNT AUTOMATED 144 10*3/uL (130-400); RED BLOOD COUNT 4.78 10*6/uL (4.10-5.10); RED CELL DISTRI WIDTH 15.3 % (0-14.5); WHITE BLOOD COUNT 7.9 10*3/uL (4.8-10.8)
[2022-12-10 09:58] LABS: ALKALINE PHOSPHATASE 56 U/L (46-116); BUN 19 mg/dl (9-23); CHLORIDE 105 mmol/L (98-107); POTASSIUM 3.6 mmol/L (3.4-5.1); SGPT/ALT 29 U/L (10-49); T3 UPTAKE 24.3 % (22.4-36.7); THYROID STIM HORMONE (HS) 4.516 uIU/ml (0.550-4.780); THYROXINE (T4) TOTAL 5.3 ug/dl (4.5-10.9); TOTAL PROTEIN 6.7 gm/dL (6.0-8.0)
[2022-12-10 10:07] LABS: VITAMIN D, 25-HYDROXY 81.6 ng/mL (30-100)
[2022-12-14 17:06] LABS: ALANINE 255.3 (77.9-1337.0); ALLOISOLEUCINE 0.7 (0.1-13.5); ALPHA-AMINOADIPATE 20.2 (0.5-146.7); ALPHA-AMINOBUTYRATE 10.2 (1.0-34.6); ASPARAGINE 40.9 (25.4-454.2); ASPARTATE 9.1 (1.0-86.7); BETA-ALANINE 4.2 (1.0-869.8); BETA-AMINOISOBUTYRATE 31.2 (0.5-807.9); CITRULLINE 5.6 (1.0-27.4); CYSTATHIONINE 2.6 (0.5-80.8); GAMMA-AMINOBUTYRATE <.5 (0.5-13.1); GLUTAMINE 612.3 (5.0-1756.2); GLYCINE 586.7 (277.3-7996.9); HOMOCITRULLINE 3.5 (0.5-80.0); HOMOCYSTINE <0.3 (0.3-1.4); HYDROXYLYSINE 0.9 (0.1-37.3); HYDROXYPROLINE 2.1 (0.5-87.9); ISOLEUCINE 10.2 (5.0-48.1); LEUCINE 21.6 (5.0-129.1); LYSINE 52.3 (15.3-1020.6); ORNITHINE 11.9 (5.0-76.3); PHENYLALANINE 34.2 (5.0-239.0); PROLINE <5.0 (5.0-168.6); SARCOSINE 1.2 (0.5-27.3); SERINE 137.7 (98.4-1052.8); TAURINE 521.6 (24.2-5335.7); THREONINE 49.3 (5.0-714.9); VALINE 25.1 (5.0-147.4)
[2022-12-15 02:06] LABS: TESTOSTERONE FREE, (DIRECT) 0.8 pg/mL (0.0-4.2)
[2022-12-16 00:06] LABS: NICOTINAMIDE 8.6 ng/mL (5.2-72.1)
[2022-12-16 14:08] LABS: NICOTINIC ACID <5.0 ng/mL (0.0-5.0)
== END | disposition home or self-care (01) ==
LOC: LAB 08:43
PROVIDERS: ATTEND Nurse Practitioner
DX: E27.9 Disorder of adrenal gland, unspecified (principal); M06.9 Rheumatoid arthritis, unspecified; E03.9 Hypothyroidism, unspecified; E55.9 Vitamin D deficiency, unspecified

== ENCOUNTER → 2023-10-06 | Outpatient (CLI) | payer MEDICARE ==
[2023-10-06 09:12] LABS: BASO % 0.3 % (0.0-1.0); HEMATOCRIT 43.6 % (37.0-47.0); LYMPH # 1.3 10*3/uL (1.3-4.4); LYMPH % 16.6 % (27.0-41.0); MEAN CELL VOLUME 94.6 fl (81.0-99.0); MEAN CORPUSCULAR HGB 29.1 pg (27.0-31.0); MEAN CORPUSCULAR HGB CONC 30.7 g/dl (33.0-37.0); MEAN PLATELET VOLUME 12.7 fl (9.6-12.3); MONO # 1.1 10*3/uL (0.1-1.0); NEUT # 5.4 10*3/uL (2.3-7.9); PLATELET COUNT AUTOMATED 184 10*3/uL (130-400); RED BLOOD COUNT 4.61 10*6/uL (4.10-5.10); RED CELL DISTRI WIDTH 14.6 % (0-14.5); WHITE BLOOD COUNT 7.8 10*3/uL (4.8-10.8)
[2023-10-06 09:35] LABS: ALKALINE PHOSPHATASE 83 U/L (46-116); BUN 11 mg/dl (9-23); CHLORIDE 106 mmol/L (98-107); POTASSIUM 4.1 mmol/L (3.4-5.1); SGPT/ALT 23 U/L (5-49); TOTAL PROTEIN 7.2 gm/dL (6.0-8.0)
[2023-10-06 09:38] LABS: FREE T4 1.26 ng/dl (0.89-1.76)
[2023-10-06 09:47] LABS: VITAMIN D, 25-HYDROXY 86.4 ng/mL (30-100)
== END | disposition home or self-care (01) ==
LOC: LAB 08:37
PROVIDERS: Nurse Practitioner; ATTEND Emergency Medicine
DX: E03.9 Hypothyroidism, unspecified (principal); E27.9 Disorder of adrenal gland, unspecified; E52 Niacin deficiency [pellagra]; M06.9 Rheumatoid arthritis, unspecified; E55.9 Vitamin D deficiency, unspecified; Z79.899 Other long term (current) drug therapy

== ENCOUNTER → 2023-10-10 | Outpatient (CLI) | payer MEDICARE | LOC: ORTHO 02:48 | PROVIDERS: ATTEND Orthopaedic Surgery | DX: M19.011 Primary osteoarthritis, right shoulder (principal); M25.511 Pain in right shoulder ==

== ENCOUNTER → 2024-02-02 | Outpatient (CLI) | payer MEDICARE ==
[2024-02-02 09:52] LABS: ALKALINE PHOSPHATASE 76 U/L (46-116); BUN 10 mg/dl (9-23); CHLORIDE 104 mmol/L (98-107); FREE T4 1.24 ng/dl (0.89-1.76); POTASSIUM 3.9 mmol/L (3.4-5.1); SGPT/ALT 20 U/L (5-49); TOTAL PROTEIN 6.6 gm/dL (6.0-8.0)
[2024-02-07 16:09] LABS: NICOTINIC ACID <5.0 ng/mL (0.0-5.0)
== END | disposition home or self-care (01) ==
LOC: LAB 08:42
PROVIDERS: ATTEND Nurse Practitioner
DX: E27.9 Disorder of adrenal gland, unspecified (principal); E72.9 Disorder of amino-acid metabolism, unspecified; M06.9 Rheumatoid arthritis, unspecified; E03.9 Hypothyroidism, unspecified; E52 Niacin deficiency [pellagra]

== ENCOUNTER → 2024-08-07 | Outpatient (CLI) | payer MEDICARE | END | disposition home or self-care (01) | LOC: RAD 12:57 | PROVIDERS: ATTEND Nurse Practitioner Family | DX: M19.022 Primary osteoarthritis, left elbow (principal); M79.641 Pain in right hand; M79.89 Other specified soft tissue disorders; M25.522 Pain in left elbow; M25.422 Effusion, left elbow; M25.512 Pain in left shoulder; Z91.81 History of falling ==

== ENCOUNTER 2024-10-20 18:46 | Observation (INO) | payer MEDICARE, OTHER ==
[~2024-10-20] VITALS: Ht 162.5 cm; Wt 131.5 kg
[2024-10-20 19:01] VITALS: BP 155/110
[2024-10-20] MEDS ORDERED: Ondansetron Hydrochloride 4 MG TAB SL ONE (19:30)
[2024-10-20] MEDS ORDERED: Ketorolac Tromethamine 30 MG/ML VIAL IM ONE (19:50)
[2024-10-20 19:51] LABS: BILIRUBIN Negative (Negative); BLOOD 3+ (Negative); CLARITY Turbid (Clear); COLOR Orange (Yellow); GLUCOSE Negative (Negative); KETONE 1+ (Negative); LEUKO ESTERASE 1+ (Negative); NITRITE Negative (Negative)
[2024-10-20 20:37] LABS: RBC TNTC rbc/hpf (0-2)
[2024-10-20 20:37] LABS: BASO % 0.1 % (0.0-1.0); HEMATOCRIT 43.7 % (37.0-47.0); MEAN CELL VOLUME 95.8 fl (81.0-99.0); MEAN CORPUSCULAR HGB 30.9 pg (27.0-31.0); MEAN CORPUSCULAR HGB CONC 32.3 g/dl (33.0-37.0); MEAN PLATELET VOLUME 12.5 fl (9.6-12.3); MONO # 0.9 10*3/uL (0.1-1.0); MONO % 8.1 % (3.0-9.0); NEUT # 8.9 10*3/uL (2.3-7.9); NEUT % 82.3 % (47.0-73.0); PLATELET COUNT AUTOMATED 212 10*3/uL (130-400); RED BLOOD COUNT 4.56 10*6/uL (4.10-5.10); WHITE BLOOD COUNT 10.8 10*3/uL (4.8-10.8)
[2024-10-20] MEDS ORDERED: fentaNYL CITRATE/PF 50 MCG/ML SYRINGE IV ONE (20:40)
[2024-10-20] MEDS ORDERED: SODIUM CHLORIDE 0.9% 1,000 ML IV ONE (20:40)
[2024-10-20 20:58] LABS: BUN 17 mg/dl (9-23); CHLORIDE 101 mmol/L (98-107); POTASSIUM 3.8 mmol/L (3.4-5.1)
[2024-10-20] MEDS ORDERED: Ondansetron Hydrochloride 4 MG/2 ML VIAL IV ONE ×2 (21:15→22:45)
[2024-10-20] MEDS ORDERED: fentaNYL CITRATE 100 MCG/2 ML VIAL IV PRN (23:40)
[2024-10-20] MEDS ORDERED: Magnesium Hydroxide 30 ML UDC PO PRN (23:40)
[2024-10-20] MEDS ORDERED: Ondansetron Hydrochloride 4 MG/2 ML VIAL IV PRN (23:40)
[2024-10-20] MEDS ORDERED: BISACODYL 10 MG SUPP R PRN (23:40)
[2024-10-20] MEDS ORDERED: BISACODYL 5 MG TAB PO PRN (23:40)
[2024-10-20] MEDS ORDERED: TEMAZEPAM 15 MG CAP PO PRN (23:40)
[2024-10-20] MEDS ORDERED: Ketorolac Tromethamine 15 MG/ML VIAL IV PRN (23:45)
[2024-10-20] MEDS ORDERED: cefTRIAXone Sodium 1 GM in SYRINGE INFUSION 10 ML IV ONE (23:50)
[2024-10-20] MEDS ORDERED: ASPIRIN ADULT L81 M2 PO (23:51)
[2024-10-20] MEDS ORDERED: CYCLOBENZAPRINE10 MG PO (23:52)
[2024-10-20] MEDS ORDERED: METHOTREXATE S2.5 M1 PO (23:53)
[2024-10-20] MEDS ORDERED: LEFLUNOMIDE10 M1 PO (23:53)
[2024-10-20] MEDS ORDERED: LEUCOVORIN CALCI5 MG PO (23:53)
[2024-10-20] MEDS ORDERED: XELJANZ XR11 MG PO (23:55)
[2024-10-20] MEDS ORDERED: FASENRA PE30 MG/1 ML SQ (23:56)
[2024-10-21] VITALS (7 sets, daily range): BP systolic 111–199; BP diastolic 48–104
[2024-10-21] MEDS ORDERED: SODIUM CHLORIDE 0.9% 1,000 ML IV ONE (00:45)
[2024-10-21] MEDS ORDERED: Labetalol Hydrochloride 20 MG/4 ML SYR IV ONE (05:05)
[2024-10-21] MEDS ORDERED: Albuterol Sulf/Ipratropium 14.7 GM INHALER INH PRN (05:20)
[2024-10-21] MEDS ORDERED: Albuterol Sulf/Ipratropium 3 ML VIAL NEB PRN (05:30)
[2024-10-21] MEDS ORDERED: BUDESONIDE 0.5 MG AMP NEB SCH (05:30)
[2024-10-21 06:17] LABS: BASO % 0.1 % (0.0-1.0); HEMATOCRIT 40.3 % (37.0-47.0); MEAN CELL VOLUME 96.9 fl (81.0-99.0); MEAN CORPUSCULAR HGB 30.8 pg (27.0-31.0); MEAN CORPUSCULAR HGB CONC 31.8 g/dl (33.0-37.0); MEAN PLATELET VOLUME 12.9 fl (9.6-12.3); MONO # 1.2 10*3/uL (0.1-1.0); MONO % 10.7 % (3.0-9.0); NEUT # 9.2 10*3/uL (2.3-7.9); NEUT % 82.2 % (47.0-73.0); PLATELET COUNT AUTOMATED 177 10*3/uL (130-400); RED BLOOD COUNT 4.16 10*6/uL (4.10-5.10); RED CELL DISTRI WIDTH 15.3 % (0-14.5); WHITE BLOOD COUNT 11.1 10*3/uL (4.8-10.8)
[2024-10-21 07:10] LABS: ALKALINE PHOSPHATASE 78 U/L (46-116); BUN 15 mg/dl (9-23); CHLORIDE 103 mmol/L (98-107); CHOLESTEROL 127 mg/dL (<200); LDL CHOLESTEROL 62 mg/dL (9-159); POTASSIUM 3.9 mmol/L (3.4-5.1); SGPT/ALT 25 U/L (5-49); TOTAL PROTEIN 6.5 gm/dL (6.0-8.0); TRIGLYCERIDES 81 mg/dl (<150)
[2024-10-21 07:27] LABS: VITAMIN D, 25-HYDROXY 89.7 ng/mL (30-100)
[2024-10-21] MEDS ORDERED: methylPREDNISolone sod succ 40 MG VIAL IV SCH ×2 (07:30→13:00)
[2024-10-21] MEDS ORDERED: cefTRIAXone Sodium 1 GM VIAL ONE (09:21)
[2024-10-21] MEDS ORDERED: Enoxaparin Sodium 40 MG/0.4 ML SYR SC SCH (10:00)
[2024-10-21] MEDS ORDERED: Albuterol Sulfate 2.5 MG/3 ML VIAL NEB SCH (10:00)
[2024-10-21] MEDS ORDERED: cefTRIAXone Sodium 1 GM in SYRINGE INFUSION 10 ML IV SCH (10:00)
[2024-10-21] MEDS ORDERED: Fluticasone Propionate/Salmeterol 250/50 diskus INH SCH (10:00)
[2024-10-22] VITALS: BP 184/80
[2024-10-22] MEDS ORDERED: Menthol/Methyl Salicylate 1 EA TUBE T PRN (05:50)
[2024-10-22 06:55] LABS: BASO % 0.2 % (0.0-1.0); HEMATOCRIT 44.5 % (37.0-47.0); MEAN CELL VOLUME 97.6 fl (81.0-99.0); MEAN CORPUSCULAR HGB 30.7 pg (27.0-31.0); MEAN CORPUSCULAR HGB CONC 31.5 g/dl (33.0-37.0); MEAN PLATELET VOLUME 12.4 fl (9.6-12.3); MONO # 1.4 10*3/uL (0.1-1.0); MONO % 10.4 % (3.0-9.0); NEUT # 11.6 10*3/uL (2.3-7.9); NEUT % 84.1 % (47.0-73.0); PLATELET COUNT AUTOMATED 194 10*3/uL (130-400); RED BLOOD COUNT 4.56 10*6/uL (4.10-5.10); RED CELL DISTRI WIDTH 15.2 % (0-14.5); WHITE BLOOD COUNT 13.8 10*3/uL (4.8-10.8)
[2024-10-22 07:14] LABS: BUN 15 mg/dl (9-23); CHLORIDE 99 mmol/L (98-107); POTASSIUM 3.6 mmol/L (3.4-5.1)
[2024-10-22] MEDS ORDERED: SODIUM CHLORIDE 0.9% 1,000 ML IV ONE (07:50)
[2024-10-22 08:00] VITALS: BP 141/78
[2024-10-22] MEDS ORDERED: HYDROCORTISONE 5 MG TAB PO SCH ×2 (08:00→20:00)
[2024-10-22] MEDS ORDERED: Albuterol Sulfate 2.5 MG/3 ML VIAL NEB SCH (08:30)
[2024-10-22] MEDS ORDERED: Tamsulosin Hydrochloride 0.4 MG CAP PO SCH (10:00)
[2024-10-22] MEDS ORDERED: FLOMAX0.4 MG PO (11:17)
== END 2024-10-22 12:00 | disposition home or self-care (01) ==
LOC: ED 18:46 → EDHOLD 22:42 → 4E 22:42 → EDHOLD 22:42 → 4E 10-21 15:04
PROVIDERS: Nurse Practitioner Family; Student in an Organized Health Care Education/Training Program; ADMIT Internal Medicine; ATTEND Internal Medicine
DX: N13.2 Hydronephrosis with renal and ureteral calculous obstruction (principal); N13.9 Obstructive and reflux uropathy, unspecified; N12 Tubulo-interstitial nephritis, not specified as acute or chronic; N39.0 Urinary tract infection, site not specified; E87.20 Acidosis, unspecified; R31.0 Gross hematuria; R80.9 Proteinuria, unspecified; M06.9 Rheumatoid arthritis, unspecified; M15.0 Primary generalized (osteo)arthritis; K21.9 Gastro-esophageal reflux disease without esophagitis; G47.33 Obstructive sleep apnea (adult) (pediatric); I10 Essential (primary) hypertension; Z79.899 Other long term (current) drug therapy

== ENCOUNTER → 2024-12-14 | Outpatient (CLI) | payer MEDICARE, OTHER ==
[~2024-12-14] MED LIST changes: +ASPIRIN ADULT L81 M2 PO; +CYCLOBENZAPRINE10 MG PO; +FASENRA PE30 MG/1 ML SQ; +FLOMAX0.4 MG PO; +LEFLUNOMIDE10 M1 PO; +LEUCOVORIN CALCI5 MG PO; +METHOTREXATE S2.5 M1 PO; +XELJANZ XR11 MG PO
[2024-12-14 10:44] LABS: BASO % 0.2 % (0.0-1.0); BILIRUBIN Negative (Negative); BLOOD Negative (Negative); CLARITY Clear (Clear); COLOR Yellow (Yellow); GLUCOSE Negative (Negative); HEMATOCRIT 38.1 % (37.0-47.0); KETONE Negative (Negative); LEUKO ESTERASE 2+ (Negative); MEAN CELL VOLUME 97.4 fl (81.0-99.0); MEAN CORPUSCULAR HGB 30.7 pg (27.0-31.0); MEAN CORPUSCULAR HGB CONC 31.5 g/dl (33.0-37.0); MEAN PLATELET VOLUME 12.4 fl (9.6-12.3); MONO % 17.2 % (3.0-9.0); NEUT % 68.9 % (47.0-73.0); NITRITE Negative (Negative); PLATELET COUNT AUTOMATED 144 10*3/uL (130-400); RED BLOOD COUNT 3.91 10*6/uL (4.10-5.10); RED CELL DISTRI WIDTH 16.9 % (0-14.5); SPECIFIC GRAVITY <= 1.005 (1.001-1.030); UROBILINOGEN 0.2 E.U./dl (0.0-1.0); WHITE BLOOD COUNT 5.8 10*3/uL (4.8-10.8)
[2024-12-14 11:20] LABS: ALKALINE PHOSPHATASE 65 U/L (46-116); BUN 13 mg/dl (9-23); CHLORIDE 107 mmol/L (98-107); SGPT/ALT 28 U/L (5-49); TOTAL PROTEIN 6.3 gm/dL (6.0-8.0)
[2024-12-14 11:24] LABS: THYROXINE (T4) TOTAL 8.8 ug/dl (4.5-10.9)
[2024-12-14 11:32] LABS: EPITHELIAL CELLS 0-2; WBC 41-50 wbc/hpf (0-5); YEAST TRACE
== END | disposition home or self-care (01) ==
LOC: LAB 10:19
PROVIDERS: Emergency Medicine; ATTEND Urology
DX: M05.79 Rheumatoid arthritis with rheumatoid factor of multiple sites without organ or systems involvement (principal); Z79.899 Other long term (current) drug therapy

== ENCOUNTER → 2024-12-26 | Outpatient (CLI) | payer MEDICARE, OTHER | END | disposition home or self-care (01) | LOC: LAB 09:48 | PROVIDERS: ATTEND Urology | DX: E83.50 Unspecified disorder of calcium metabolism (principal); N20.0 Calculus of kidney; R31.9 Hematuria, unspecified ==

== ENCOUNTER → 2025-02-18 | Outpatient (CLI) | payer MEDICARE, OTHER | END | disposition home or self-care (01) | LOC: CT 02-14 10:00 | PROVIDERS: ATTEND Nurse Practitioner | DX: K57.30 Diverticulosis of large intestine without perforation or abscess without bleeding (principal); K44.9 Diaphragmatic hernia without obstruction or gangrene; N20.0 Calculus of kidney; Z90.49 Acquired absence of other specified parts of digestive tract ==

== ENCOUNTER → 2025-04-10 | Outpatient (CLI) | payer MEDICARE, OTHER ==
[2025-04-10 10:02] LABS: MEAN CELL VOLUME 101.5 fl (81.0-99.0); MEAN CORPUSCULAR HGB 30.7 pg (27.0-31.0); MEAN PLATELET VOLUME 11.9 fl (9.6-12.3); NUCLEATED RED BLOOD CELL 0.0 % (0.0-0.0); NUCLEATED RED BLOOD CELL 0.0 10*3/uL (0.0-0.0); PLATELET COUNT AUTOMATED 154 10*3/uL (130-400); RED CELL DISTRI WIDTH 16.3 % (0-14.5)
[2025-04-10 10:19] LABS: MANUAL DIFF REFLEX YES
[2025-04-10 10:22] LABS: BASOPHILS 1 % (0-1); PLATELET SUFFICIENCY NORMAL (NORMAL)
[2025-04-10 10:40] LABS: BUN 10 mg/dl (9-23); SGPT/ALT 21 U/L (5-49)
== END | disposition home or self-care (01) ==
LOC: LAB 09:30
PROVIDERS: ATTEND Emergency Medicine
DX: M05.79 Rheumatoid arthritis with rheumatoid factor of multiple sites without organ or systems involvement (principal); Z79.899 Other long term (current) drug therapy

== ENCOUNTER → 2025-07-22 | Outpatient (CLI) | payer MEDICARE, OTHER ==
[2025-07-22 08:41] LABS: BASO # 0.0 10*3/uL (0.0-0.1); BASO % 0.2 % (0.0-1.0); EOS # 0.0 10*3/uL (0.0-0.4); EOS % 0.0 % (1.0-4.0); MEAN CELL VOLUME 101.8 fl (81.0-99.0); MEAN CORPUSCULAR HGB 31.4 pg (27.0-31.0); MEAN PLATELET VOLUME 12.1 fl (9.6-12.3); MONO # 0.9 10*3/uL (0.1-1.0); MONO % 15.8 % (3.0-9.0); NEUT # 4.0 10*3/uL (2.3-7.9); NEUT % 70.1 % (47.0-73.0); NUCLEATED RED BLOOD CELL 0.0 % (0.0-0.0); NUCLEATED RED BLOOD CELL 0.0 10*3/uL (0.0-0.0); PLATELET COUNT AUTOMATED 182 10*3/uL (130-400); RED CELL DISTRI WIDTH 16.3 % (0-14.5)
[2025-07-22 09:20] LABS: BUN 9 mg/dl (9-23); SGPT/ALT 24 U/L (5-49)
== END | disposition home or self-care (01) ==
LOC: LAB 07:44 → US 08:00
PROVIDERS: Emergency Medicine; ATTEND Nurse Practitioner
DX: N32.89 Other specified disorders of bladder (principal); N20.0 Calculus of kidney